=== PATIENT | male | born 1995 | race Caucasian/White ===

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

== ENCOUNTER 2017-04-24 14:28 | Emergency (ER) | payer SELFPAY ==
[2017-04-24] MEDS ORDERED: ONDANSETRON HCL INJ/PF 4 MG/2 ML SDV IV ONE (14:55)
[2017-04-24] MEDS ORDERED: NORMAL SALINE 1000 ML 1,000 ML IV ONE ×3 (14:55→17:15)
--- NOTE | 2017-04-24 14:57 | ER Document Report ---
ED Medical Screen (RME) - General Chief Complaint: Nausea/Vomiting Stated Complaint: VOMITING Time Seen by Provider: 04/24/17 14:55 Mode of Arrival: Wheelchair Information source: Patient TRAVEL OUTSIDE OF THE [place] IN LAST 30 DAYS: No - HPI Patient complains to provider of: vomiting blood Onset: This morning - pt with vomiting times 2 yesterday and then 4 times earlier today, when he noticed blood in the emesis. Denies diarrhea - Related Data Allergies/Adverse Reactions: zinc Allergy (Verified 04/24/17 14:32) Past Medical History Renal/ Medical History: Denies: Hx Peritoneal Dialysis - Immunizations Immunizations up to date: Yes Hx Diphtheria, Pertussis, Tetanus Vaccination: - unknown Physical Exam - Vital signs Vitals: Temp Pulse Resp BP Pulse Ox 98.4 F 94 H 16 125/72 96 04/24/17 14:33 04/24/17 14:33 04/24/17 14:33 04/24/17 14:33 04/24/17 14:33 Course - Vital Signs Vital signs: Temp Pulse Resp BP Pulse Ox 98.4 F 94 H 16 125/72 96 04/24/17 14:33 04/24/17 14:33 04/24/17 14:33 04/24/17 14:33 04/24/17 14:33
[2017-04-24 15:43] LABS: ABSOLUTE BASOPHILS # (AUTO) 0.1 10^3/uL (0.0-0.2); ABSOLUTE EOSINOPHILS # (AUTO) 0.1 10^3/uL (0.0-0.6); ABSOLUTE LYMPHOCYTES (AUTO) 1.9 10^3/uL (0.5-4.7); ABSOLUTE MONOCYTES (AUTO) 0.4 10^3/uL (0.1-1.4); ABSOLUTE NEUT (AUTO) 3.9 10^3/uL (1.7-8.2); BASOPHILS % (AUTO) 0.9 % (0-2); EOSINOPHILS % (AUTO) 1.2 % (0-6); HEMOGLOBIN 15.1 g/dL (13.5-17.0); HGB HCT DIFFERENCE 0.3; LYMPHOCYTES % (AUTO) 29.9 % (13-45); MEAN CORPUSCULAR HGB CONC 33.5 g/dL (32.0-36.0); MEAN CORPUSCULAR VOLUME 81 fl (80-97); MONOCYTES % (AUTO) 5.9 % (3-13); RED BLOOD COUNT 5.58 10^6/uL (4.35-5.55); RED CELL DISTRIBUTION WIDTH 13.6 % (11.5-14.0); SEGMENTED NEUTROPHILS % (AUTO) 62.1 % (42-78); WHITE BLOOD COUNT 6.3 10^3/uL (4.0-10.5)
[2017-04-24 16:00] LABS: ALANINE AMINOTRANSFERASE 37 U/L (10-40); ALBUMIN 4.9 g/dL (3.7-5.6); ALKALINE PHOSPHATASE 72 U/L (65-260); ANION GAP 14 (5-19); ASPARTATE AMINO TRANSFERASE 26 U/L (10-45); BILIRUBIN,DIRECT 0.4 mg/dL (0.0-0.4); BLOOD UREA NITROGEN 16 mg/dL (7-20); CALCIUM 9.7 mg/dL (8.4-10.2); CARBON DIOXIDE 27 mmol/L (22-30); CHLORIDE 101 mmol/L (98-107); CREATININE RESULT 1.21 mg/dL (0.52-1.25); GLUCOSE 74 mg/dL (75-110); POTASSIUM 3.9 mmol/L (3.6-5.0); SODIUM 142.1 mmol/L (137-145); TOTAL PROTEIN 7.9 g/dL (6.3-8.2)
[2017-04-24] MEDS ORDERED: LANSOPRAZOLE 30 MG TAB.RAP.DR PO ONE (16:25)
[2017-04-24] MEDS ORDERED: FAMOTIDINE INJ/PF 20 MG/2 ML SDV IV ONE (16:25)
--- NOTE | 2017-04-24 17:16 | ER Document Report ---
ED GI/ - General Chief Complaint: Nausea/Vomiting Stated Complaint: VOMITING Time Seen by Provider: 04/24/17 14:55 Mode of Arrival: Wheelchair Information source: Patient Notes: 21 yo normally healthy smoker c/o vomiting x 8 since last night. No diarrhea. Still nauseated. When he was at work at the last vomit saw bright red blood, very forceful vomit. which is the reason he came in. Generalized bodyaches. No fever. TRAVEL OUTSIDE OF THE [place] IN LAST 30 DAYS: No - Related Data Allergies/Adverse Reactions: zinc Allergy (Verified 04/24/17 14:32) Past Medical History - General Information source: Patient - Social History Smoking Status: Current Every Day Smoker Frequency of alcohol use: None Drug Abuse: None Lives with: Family Family History: Reviewed & Not Pertinent - Medical History Medical History: Negative Renal/ Medical History: Denies: Hx Peritoneal Dialysis GI Medical History: Reports: Other - typanostomy tubes - Immunizations Immunizations up to date: Yes Hx Diphtheria, Pertussis, Tetanus Vaccination: - unknown Physical Exam - Vital signs Vitals: Temp Pulse Resp BP Pulse Ox 98.4 F 94 H 16 125/72 96 04/24/17 14:33 04/24/17 14:33 04/24/17 14:33 04/24/17 14:33 04/24/17 14:33 Interpretation: Normal - Notes Notes: still looks dry, no vomiting now. - General General appearance: Appears well, Alert In distress: None - HEENT Head: Normocephalic, Atraumatic Eyes: Normal Conjunctiva: Normal Pupils: PERRL Mucous membranes: Dry Pharynx: Normal Neck: Supple. No: Lymphadenopathy - Respiratory Respiratory status: No respiratory distress Chest status: Nontender Breath sounds: Normal Chest palpation: Normal - Cardiovascular Rhythm: Regular Heart sounds: Normal auscultation Murmur: No - Abdominal Inspection: Normal Distension: No distension Bowel sounds: Normal Tenderness: Tender - minimal epigastric Organomegaly: No organomegaly - Back Back: Normal, Nontender. No: CVA tenderness - Extremities General upper extremity: Normal inspection, Nontender, Normal color, Normal ROM , Normal temperature General lower extremity: Normal inspection, Nontender, Normal color, Normal ROM , Normal temperature, Normal weight bearing. No: Whitney's sign - Neurological Neuro grossly intact: Yes Cognition: Normal Orientation: AAOx4 [place] Coma Scale Eye Opening: Spontaneous [place] Coma Scale Verbal: Oriented [place] Coma Scale Motor: Obeys Commands [place] Coma Scale Total: 15 Speech: Normal Motor strength normal: LUE, RUE, LLE, RLE Sensory: Normal - Psychological Associated symptoms: Normal affect, Normal mood - Skin Skin Temperature: Warm Skin Moisture: Dry Skin Color: Normal Skin irregularity: negative: Rash Course - Re-evaluation Re-evalutation: 04/24/17 17:23 Labs are okay, drinking some fluid without vomit. - Vital Signs Vital signs: Temp Pulse Resp BP Pulse Ox 98.4 F 94 H 16 125/72 96 04/24/17 14:33 04/24/17 14:33 04/24/17 14:33 04/24/17 14:33 04/24/17 14:33 - Laboratory Result Diagrams: 04/24/17 15:24 04/24/17 15:24 Laboratory results interpreted by me: 04/24/17 04/24/17 15:24 15:24 RBC 5.58 H Glucose 74 L Discharge - Discharge Clinical Impression: Vomiting Qualifiers: Vomiting type: unspecified Vomiting Intractability: non-intractable Nausea presence: with nausea Qualified Code(s): R11.2 - Nausea with vomiting, unspecified Vomiting blood Qualifiers: Nausea presence: with nausea Qualified Code(s): K92.0 - Hematemesis Condition: Good Disposition: HOME, SELF-CARE Instructions: Vomiting ([facility]), Antinausea Medication (OM), Intravenous (IV) Fluids ([facility]), Dehydration ([facility]) Additional Instructions: Return to the emergency room any concerns Drink plenty of fluids and advance diet as tolerated Please complete the patient satisfaction survey if you get one, and return it.. If you do not receive a survey, then you can go to the [facility] website, [email or web address] and place your comments about your very good care. Thank you very much. It was a pleasure being your medical provider today. Prescriptions: Promethazine HCl [Phenergan 25 mg Tablet] 25 mg PO Q4HP PRN #20 tablet PRN Reason: Forms: Return to Work
[2017-04-24 17:31] LABS: APPEARANCE,URINE SLIGHTLY-CLOUDY; BILIRUBIN,URINE NEGATIVE (NEGATIVE); GLUCOSE, URINE NEGATIVE (NEGATIVE); KETONES,URINE 20 mg/dL (NEGATIVE); LEUKOCYTE ESTERASE,URINE NEGATIVE (NEGATIVE); NITRITE,URINE NEGATIVE (NEGATIVE); PROTEIN,URINE 30 mg/dL (NEGATIVE); URINE SPECIFIC GRAVITY 1.033; UROBILINOGEN,URINE NEGATIVE mg/dL (<2.0)
[2017-04-24 18:01] VITALS: BP 108/61
== END 2017-04-24 18:01 | disposition home or self-care (01) ==
LOC: ER 14:28
DX: K92.0 Hematemesis (principal); F17.200 Nicotine dependence, unspecified, uncomplicated; R10.816 Epigastric abdominal tenderness; Z88.8 Allergy status to other drugs, medicaments and biological substances
CPT/HCPCS: 99283; 96361; 96374; 96375; 36415; 83690; 85025; 80053; 81001; J2405; J7030; S0028

== ENCOUNTER 2017-04-26 17:13 | Emergency (ER) | payer SELFPAY ==
[2017-04-26] MEDS ORDERED: ONDANSETRON 4 MG TAB.RAPDIS PO ONE (17:23)
--- NOTE | 2017-04-26 17:26 | ER Document Report ---
ED Medical Screen (RME) - General Stated Complaint: VOMITING,DIARRHEA Time Seen by Provider: 04/26/17 17:18 Notes: This 21-year-old male patient comes emergency room with onset , 2016 of nausea vomiting. He was seen in the emergency room the following day on Thursday and treated. He reports diarrhea started on Thursday evening after he went home. The vomiting returned the following day Thursday and has continued. The diarrhea has also continued. There is no fever but he feels chilled or shaky. There is some red streaks in the vomitus. He denies abdominal pain except for when he vomits and then has some epigastric discomfort. I have greeted and performed a rapid initial assessment of this patient. A comprehensive ED assessment and evaluation of the patient, analysis of test results and completion of the medical decision making process will be conducted by additional ED providers. TRAVEL OUTSIDE OF THE [place] IN LAST 30 DAYS: No - Related Data Allergies/Adverse Reactions: zinc Allergy (Verified 04/26/17 17:17) Past Medical History Renal/ Medical History: Denies: Hx Peritoneal Dialysis - Immunizations Immunizations up to date: Yes Hx Diphtheria, Pertussis, Tetanus Vaccination: - unknown Physical Exam - Vital signs Vitals: Temp Pulse Resp BP Pulse Ox 98.8 F 85 18 131/75 H 97 04/26/17 17:16 04/26/17 17:16 04/26/17 17:16 04/26/17 17:16 04/26/17 17:16 Course - Vital Signs Vital signs: Temp Pulse Resp BP Pulse Ox 98.8 F 85 18 131/75 H 97 04/26/17 17:16 04/26/17 17:16 04/26/17 17:16 04/26/17 17:16 04/26/17 17:16
[2017-04-26 17:45] LABS: ABSOLUTE BASOPHILS # (AUTO) 0.1 10^3/uL (0.0-0.2); ABSOLUTE EOSINOPHILS # (AUTO) 0.2 10^3/uL (0.0-0.6); ABSOLUTE LYMPHOCYTES (AUTO) 1.8 10^3/uL (0.5-4.7); ABSOLUTE MONOCYTES (AUTO) 0.6 10^3/uL (0.1-1.4); ABSOLUTE NEUT (AUTO) 4.7 10^3/uL (1.7-8.2); BASOPHILS % (AUTO) 1.5 % (0-2); EOSINOPHILS % (AUTO) 2.4 % (0-6); HEMATOCRIT 45.1 % (37.9-51.0); HEMOGLOBIN 15.2 g/dL (13.5-17.0); HGB HCT DIFFERENCE 0.5; LYMPHOCYTES % (AUTO) 24.4 % (13-45); MEAN CORPUSCULAR HEMOGLOBIN 27.5 pg (27.0-33.4); MEAN CORPUSCULAR HGB CONC 33.7 g/dL (32.0-36.0); MEAN CORPUSCULAR VOLUME 81 fl (80-97); MONOCYTES % (AUTO) 8.2 % (3-13); RED BLOOD COUNT 5.54 10^6/uL (4.35-5.55); RED CELL DISTRIBUTION WIDTH 14.1 % (11.5-14.0); SEGMENTED NEUTROPHILS % (AUTO) 63.5 % (42-78); WHITE BLOOD COUNT 7.4 10^3/uL (4.0-10.5)
[2017-04-26 18:00] LABS: APPEARANCE,URINE CLEAR; BILIRUBIN,URINE NEGATIVE (NEGATIVE); GLUCOSE, URINE NEGATIVE (NEGATIVE); KETONES,URINE NEGATIVE (NEGATIVE); LEUKOCYTE ESTERASE,URINE NEGATIVE (NEGATIVE); NITRITE,URINE NEGATIVE (NEGATIVE); PROTEIN,URINE NEGATIVE (NEGATIVE); URINE SPECIFIC GRAVITY 1.009; UROBILINOGEN,URINE NEGATIVE mg/dL (<2.0)
[2017-04-26 18:05] LABS: ANION GAP 13 (5-19); BLOOD UREA NITROGEN 10 mg/dL (7-20); CARBON DIOXIDE 28 mmol/L (22-30); CHLORIDE 105 mmol/L (98-107); CREATININE RESULT 1.08 mg/dL (0.52-1.25); GLUCOSE 73 mg/dL (75-110); POTASSIUM 4.1 mmol/L (3.6-5.0); SODIUM 145.5 mmol/L (137-145)
[2017-04-26 18:07] LABS: URINE BARBITURATES SCREEN NEGATIVE; URINE METHADONE SCREEN NEGATIVE; URINE OPIATES LOW NEGATIVE; URINE PHENCYCLIDINE SCREEN NEGATIVE
[2017-04-26] MEDS ORDERED: NORMAL SALINE 1000 ML 1,000 ML IV ONE (18:29)
[2017-04-26 18:33] LABS: ADD ON TESTING BLD IN LAB ACKNOWLEDGE
[2017-04-26 18:45] LABS: ALANINE AMINOTRANSFERASE 39 U/L (10-40); ALBUMIN 4.8 g/dL (3.7-5.6); ALKALINE PHOSPHATASE 77 U/L (65-260); ASPARTATE AMINO TRANSFERASE 23 U/L (10-45); BILIRUBIN,DIRECT 0.4 mg/dL (0.0-0.4); BILIRUBIN,TOTAL 0.4 mg/dL (0.2-1.3); LIPASE 126.2 U/L (23-300)
--- NOTE | 2017-04-26 18:48 | ER Document Report ---
ED GI/ - General Chief Complaint: Nausea/Vomiting/Diarrhea Stated Complaint: VOMITING,DIARRHEA Time Seen by Provider: 04/26/17 17:18 Information source: Patient Notes: Patient is a 21-year-old male that was doing well until Thursday when he started to have some vomiting. He vomited around 7 times on Thursday with the last vomitus having specks of blood. He was seen and evaluated here in the emergency department and then started to develop that evening some diarrhea. He states he has had more diarrhea than vomiting over the last 36 hours. He denies any obvious blood in the diarrhea. Patient denies any fevers. He states of intermittent nonradiating epigastric "pain" intermittently. Patient denies any recent trips, travel, or antibiotics. TRAVEL OUTSIDE OF THE [place] IN LAST 30 DAYS: No - HPI Patient complains to provider of: Abdominal pain Onset: Other - See above Timing/Duration: Gradual Quality of pain: Other - See above Severity at maximum: Mild Severity in ED: Mild Pain Level: 1 Location: Other - See above Sexual history: Active Associated symptoms: Other - See above Exacerbated by: Denies Relieved by: Denies Similar symptoms previously: No Recently seen / treated by doctor: No - Related Data Allergies/Adverse Reactions: zinc Allergy (Verified 04/26/17 17:17) Past Medical History - General Information source: Patient - Social History Smoking Status: Current Every Day Smoker Cigarette use (# per day): No Chew tobacco use (# tins/day): No Smoking Education Provided: No Frequency of alcohol use: None Drug Abuse: None Family History: Reviewed & Not Pertinent Renal/ Medical History: Denies: Hx Peritoneal Dialysis - Immunizations Immunizations up to date: Yes Hx Diphtheria, Pertussis, Tetanus Vaccination: - unknown Review of Systems - Review of Systems Constitutional: denies: Fever EENT: denies: Eye discharge, Nose discharge Respiratory: denies: Short of breath Gastrointestinal: Nausea. denies: Vomiting Genitourinary: denies: Dysuria Musculoskeletal: denies: Leg swelling Skin: Other - no hives. denies: Rash Neurological/Psychological: Other - no slurred speech -: Yes All other systems reviewed and negative Physical Exam - Vital signs Vitals: Temp Pulse Resp BP Pulse Ox 98.8 F 85 18 131/75 H 97 04/26/17 17:16 04/26/17 17:16 04/26/17 17:16 04/26/17 17:16 04/26/17 17:16 Interpretation: Normal Notes: Reviewed vital signs and nursing note as charted by RN. CONSTITUTIONAL: Alert and oriented and responds appropriately to questions. Well -appearing; well-nourished HEAD: Normocephalic; atraumatic EYES: Sclerae non-icteric ENT: Normal nose; no rhinorrhea; moist mucous membranes; pharynx without lesions noted NECK: Supple without meningismus CARD: Regular rate and rhythm; no murmurs, no clicks, no rubs, no gallops; symmetric distal pulses RESP: Normal chest excursion without splinting or tachypnea; breath sounds clear and equal bilaterally ABD/GI: Normal bowel sounds; non-distended; soft, mildly tender to the epigastric region without rebound or guarding BACK: The back appears normal and is non-tender to palpation, there is no CVA tenderness EXT: Normal ROM in all joints; non-tender to palpation; no cyanosis, no effusions, no edema SKIN: Normal color for age and race; patient has a dry scaly rash to his lower abdomen region. Patient states this is secondary to his allergy to belt luciano. He states he has had this multiple times in the past there is no tenderness, fluctuance, or obvious signs of infection NEURO: Moves all extremities equally; Motor and sensory function intact PSYCH: The patient's mood and manner are appropriate. Grooming and personal hygiene are appropriate. Course - Re-evaluation Re-evalutation: 04/26/17 18:48 Given the above history and physical examination, we will obtain basic labs, and provide fluids and nausea medications. Given the combination of vomiting with progressive diarrhea following the vomiting episodes, I do believe that this is most likely viral in nature. I will add a liver panel and lipase to assess the patient's pancreas and liver enzymes. I performed a rectal examination showing no gross blood. Hemoccult is pending. 04/26/17 19:22 Labs as recorded. Negative Hemoccult stool. Normal liver panel, lipase, hemoglobin, and white blood cell count. Given the above history, physical, laboratory values, with no vomiting here at this facility, I will discharge the patient home with strict return precautions and follow-up with the primary provider. - Vital Signs Vital signs: Temp Pulse Resp BP Pulse Ox 98.8 F 85 18 131/75 H 97 04/26/17 17:16 04/26/17 17:16 04/26/17 17:16 04/26/17 17:16 04/26/17 17:16 - Laboratory Result Diagrams: 04/26/17 17:32 04/26/17 17:32 Laboratory results interpreted by me: 04/26/17 04/26/17 04/26/17 17:32 17:32 17:32 RDW 14.1 H Sodium 145.5 H Glucose 73 L Urine Blood SMALL H Discharge - Discharge Clinical Impression: Vomiting and diarrhea Condition: Good Disposition: HOME, SELF-CARE Additional Instructions: Come back immediately with any repeat persistent vomiting, diarrhea, blood in the vomit or diarrhea, fevers, change in location or quality of pain, or any other acute problems. Prescriptions: Ondansetron [Zofran Odt 4 mg Tablet] 1 tab PO Q6H #15 tab.saw
[2017-04-26 19:53] VITALS: BP 128/72
== END 2017-04-26 19:53 | disposition home or self-care (01) ==
LOC: ER 17:13
DX: R11.2 Nausea with vomiting, unspecified (principal); R19.7 Diarrhea, unspecified; F17.200 Nicotine dependence, unspecified, uncomplicated
CPT/HCPCS: 99284; 96360; 36415; 83690; 85025; 82272; 80076; 80048; 81001; 80307; S0119; J7030

== ENCOUNTER 2020-06-24 20:54 | Emergency (ER) | payer SELFPAY ==
[2020-06-24 21:26] VITALS: BP 145/92
[2020-06-24] MEDS ORDERED: HYDROCODONE/ACETAMINOPHEN 5-325 MG TABLET PO ONE (21:59)
[2020-06-24] MEDS ORDERED: CEPHALEXIN 500 MG CAPSULE PO ONE (21:59)
--- NOTE | 2020-06-24 22:01 | ER Document Report ---
ED General - General Stated Complaint: POSSIBLE MIGRAINE/TOOTH PAIN Time Seen by Provider: 06/24/20 21:53 Mode of Arrival: Ambulatory Information source: Patient Notes: Is a 25-year-old male coming in today with left upper jaw pain. He reports a couple of days ago that he was eating a hamburger and the tooth broke off. Having increased amount of pain. No trouble swallowing or breathing. No fevers or chills. No blood or purulent drainage. TRAVEL OUTSIDE OF THE [place] IN LAST 30 DAYS: No - Related Data Allergies/Adverse Reactions: zinc Allergy (Verified 04/26/17 17:17) Past Medical History - Social History Smoking Status: Unknown if Ever Smoked Family History: Reviewed & Not Pertinent Renal/ Medical History: Denies: Hx Peritoneal Dialysis - Immunizations Immunizations up to date: Yes Hx Diphtheria, Pertussis, Tetanus Vaccination: - unknown Review of Systems - Review of Systems Notes: Constitutional: No fevers. No chills. EENT: No eye redness. No eye pain. No ear pain. No sore throat. Positive tooth pain Cardiovascular: No chest pain. No palpitations. Respiratory: No cough. No shortness of breath. No respiratory distress. Gastrointestinal: No abdominal pain. No nausea, vomiting, or diarrhea. Genitourinary: Atraumatic. No lesions. No pain. No discharge. Musculoskeletal: Atraumatic. No swelling. No deformities. Skin: No rash or lesions. Lymphatic: No swollen lymph nodes. Neurologic: No headache. No syncope. Psychiatric: No suicidal or homicidal ideation. Physical Exam - Vital signs Vitals: Temp Pulse Resp BP Pulse Ox 98.3 F 69 16 145/92 H 100 06/24/20 21:23 06/24/20 21:23 06/24/20 21:23 06/24/20 21:23 06/24/20 21:23 - Notes Notes: General: Well-developed, well-nourished. In no acute distress. Non-toxic appearing. Cardiac: Well-perfused. Regular rate and rhythm. No murmurs, rubs, or gallops. Pulmonary: No respiratory distress. No cyanosis. Bilateral lung fiels are clear to auscultation. Abdominal: Non-distended. Non-rigid. Bowels sounds are present in all four quadrants. No guarding or rebound. HEENT: Head is atraumatic. Conjunctivae not reddened. No tearing. PERRL. EOMI. Orbits atraumatic. No periorbital swelling or erythema. Oropharynx is without erythema, swelling, or exudates. The posterior half of the left upper molar is fractured off. No bleeding. No purulent drainage. No gum abscess. Tender to palpate. No trismus. No drooling. No submandibular or sublingual swelling. No dysphonia dyspnea or dysphagia Neck: Supple. No adenopathy. No meningismus. Dermatologic: Warm with good turgor. No rash. Atraumatic. Chest: Atraumatic. No chest wall tenderness to palpation. Musculoskeletal: Moves all extremities well. No range of motion deficits. no muscular or joint tenderness. No paraspinal muscle tenderness. no midline spinal tenderness or step-off. Genitourinary: Examination deferred Neurologic: No gross neurologic deficits. Psychiatric: Normal mood. Course - Vital Signs Vital signs: Temp Pulse Resp BP Pulse Ox 98.3 F 69 16 145/92 H 100 06/24/20 21:23 06/24/20 21:23 06/24/20 21:23 06/24/20 21:23 06/24/20 21:23 Discharge - Discharge Clinical Impression: Elevated blood pressure reading Fractured tooth Qualifiers: Encounter type: initial encounter Fracture type: closed Qualified Code(s): S02.5XXA - Fracture of tooth (traumatic), initial encounter for closed fracture Condition: Good Disposition: HOME, SELF-CARE Instructions: Toothache ([facility]), [facility] Prescriptions: Acetaminophen with Codeine [Tylenol #3 Tablet] 1 each PO Q4HP PRN #12 tablet PRN Reason: Cephalexin Monohydrate [Keflex 500 mg Capsule] 500 mg PO Q6H 7 Days #28 capsule Forms: Elevated Blood Pressure
== END 2020-06-24 22:10 | disposition home or self-care (01) ==
LOC: ER 20:54
DX: S02.5XXA Fracture of tooth (traumatic), initial encounter for closed fracture (principal); X58.XXXA Exposure to other specified factors, initial encounter; R03.0 Elevated blood-pressure reading, without diagnosis of hypertension; Z88.8 Allergy status to other drugs, medicaments and biological substances
CPT/HCPCS: 99284

== ENCOUNTER 2020-06-25 02:54 | Emergency (ER) | payer SELFPAY ==
[2020-06-25 03:26] VITALS: BP 127/93
== END 2020-06-25 04:40 | disposition left against medical advice (07) ==
LOC: ER 02:54
DX: Z53.21 Procedure and treatment not carried out due to patient leaving prior to being seen by health care provider (principal)